=== PATIENT | male | born 1965 | race American Indian/Alaskan Native ===

== ENCOUNTER 2024-08-20 06:55 | Day surgery (SDC) | payer BC, OTHER ==
[~2024-08-20] VITALS: Ht 170.2 cm; Wt 93.0 kg
[~2024-08-20 06:55] MED LIST: ADULT LOW DOSE81 MG PO; CLARITIN10 M2 PO; CRESTOR20 MG PO; FEXOFENADINE H180 MG PO; FLUTICASONE PRO16 GM NS; GLIPIZIDE10 MG PO; LACTATED RINGER'S 1,000 ML IV SCH; LIPITOR20 MG PO; LISINOPRIL10 MG PO; METFORMIN HCL500 M1 PO; OXYCODONE HCL10 MG PO; OZEMPIC1 MG/0.75; PIOGLITAZONE HC30 MG PO; TYLENOL325 MG PO; XARELTO10 MG PO
[2024-08-20] MEDS ORDERED: LIDOCAINE HCL 1% 5 ML SDV INJ ONE (07:00)
[2024-08-20] MEDS ORDERED: IBLOOD GLUCOSE TEST STRIP 1 EA TEST VI PRN (07:00)
[2024-08-20 07:28] VITALS: BP 122/65
[2024-08-20] MEDS ORDERED: GLUCAGON,HUMAN RECOMBINANT 1 MG/ML VIAL ONE (07:32)
--- NOTE | 2024-08-20 07:38 | NUR ---
PT NOT AVAILABLE FOR VISIT. PROVIDED PRAYER.
[2024-08-20] MEDS ORDERED: CEFAZOLIN SODIUM 2 GM/20 ML SYR IV SCH (07:42)
--- NOTE | 2024-08-20 09:22 | NUR ---
08/20/24921 Jackie Minor 0858-PT ARRIVES TO PACU, VIA STRETCHER, RESTING ON LT SIDE, PT RESPONISVE TO STIMULI BUT CONTINUES TO REST W/ EYES CLOSED, VSS ON RA, RR EVEN AND UNLABORED. 904-PT CONTINUES TO REST W/ EYES CLOSED, VS REMAIN STABLE, PT PASSING GAS. 914-PT AWAKENS EASILY TO VOICE, DENIES PAIN OR NAUSEA, VSS ON RA, PT ENCOURAGED TO PASS GAS.
[2024-08-20 09:35] VITALS: BP 114/68
--- NOTE | 2024-08-26 15:15 | OR ---
[facility] [address] [facility] [place], [place] [address] Signed DATE OF OPERATION: 08/20/2024 SURGEON: Myles Reid DO PREOPERATIVE DIAGNOSIS: Colon cancer screening. POSTOPERATIVE DIAGNOSIS: Colon cancer screening with sigmoid diverticulosis. PROCEDURE PERFORMED: Colonoscopy. ANESTHESIA: IV sedation. ESTIMATED BLOOD LOSS: None. DRAINS: None. COMPLICATION: None. DESCRIPTION OF PROCEDURE: The patient was brought to the GI lab, placed in supine position. After induction of IV sedation, he was placed in left lateral position and padded to the satisfaction of anesthesia. The digital rectal exam was performed. No prostatic or rectal abnormalities were appreciated. Olympus video colonoscope was then introduced into the rectum, directed to the length of rectosigmoid, sigmoid colon, ascending colon, transverse colon, into the ascending colon and cecum. Colon was then fully insufflated and inspection of the mucosa surface then carried out. Ascending colon and cecum were without lesions, ulcerations, or intrinsic or extrinsic masses. Scope was brought back into the transverse colon, past the splenic flexure. No intrinsic or extrinsic masses were noted. No lesions or ulceration noted as well. Scope passed the splenic flexure and the descending colon. No intrinsic or extrinsic masses appreciated. No lesions or ulceration noted. Scope was brought back into the sigmoid colon, some scattered sigmoid diverticula were noted with no evidence of inflammation or infection was noted. Otherwise, sigmoid colon was without intrinsic or extrinsic masses, lesions, or Electronically Signed By: MYLES REID DO 08/26/24 1515 PATIENT NAME: ABRAHAM WHITLOCK OPERATIVE REPORT DATE OF : 61 REPORT #: [id number] PHYSICIAN: MYLES REID DO PCP: [facility] REPORT IS CONFIDENTIAL AND NOT TO BE RELEASED WITHOUT AUTHORIZATION [facility] [address] [place], [place] [address] Signed ulcerations. Scope was brought back into the rectosigmoid, which was essentially unremarkable. Rectum was essentially unremarkable as well. Scope was withdrawn. The patient tolerated the procedure well and went to recovery in satisfactory condition. Myles Reid DO RS/JUAN F /[id number] Copies: ~ Electronically Signed By: MYLES REID DO 08/26/24 1515 PATIENT NAME: ABRAHAM WHITLOCK OPERATIVE REPORT DATE OF : 61 REPORT #: [id number] PHYSICIAN: MYLES REID DO PCP: [facility] L[facility] REPORT IS CONFIDENTIAL AND NOT TO BE RELEASED WITHOUT AUTHORIZATION
== END 2024-08-20 09:55 | disposition home or self-care (01) ==
LOC: DS 06:55
PROVIDERS: ATTEND Surgery
PROC: 0DJD8ZZ Inspection of Lower Intestinal Tract, Via Natural or Artificial Opening Endoscopic (ICD-10-PCS; principal; 2024-08-20 09:00)
DX: Z12.11 Encounter for screening for malignant neoplasm of colon (principal); K57.30 Diverticulosis of large intestine without perforation or abscess without bleeding; I10 Essential (primary) hypertension; E78.5 Hyperlipidemia, unspecified; E11.9 Type 2 diabetes mellitus without complications; Z86.0101 Personal history of adenomatous and serrated colon polyps; Z86.0102 Personal history of hyperplastic colon polyps; Z79.82 Long term (current) use of aspirin; Z79.84 Long term (current) use of oral hypoglycemic drugs; Z79.899 Other long term (current) drug therapy; Z88.0 Allergy status to penicillin; Z96.659 Presence of unspecified artificial knee joint
CPT/HCPCS: 00812; J0690; J1610; J2704